=== PATIENT | female | born 1935 | race Caucasian/White ===

== ENCOUNTER 2017-08-11 07:41 | Emergency (ER) | payer OTHER, MEDICARE ==
[~2017-08-11] VITALS: Ht 165.1 cm; Wt 82.9 kg
[2017-08-11] MEDS ORDERED: TYLENOL WITH C1 EACH PO (11:16)
[2017-08-11 11:31] VITALS: BP 153/69
== END 2017-08-11 11:32 | disposition home or self-care (01) ==
LOC: EME 07:41
DX: M25.561 Pain in right knee (principal); M13.861 Other specified arthritis, right knee
CPT/HCPCS: 73564; 99281; 99283